=== PATIENT | male | born 1955 | race Caucasian/White ===

== ENCOUNTER 2020-09-02 00:34 | Outpatient (CLI) | payer MEDICARE, OTHER, SELFPAY ==
[2020-09-02 17:38] LABS: SARS-CoV-2 RNA PCR Negative
== END 2020-09-02 00:35 | disposition home or self-care (01) ==
LOC: ANHCOVIDDT 00:34
PROVIDERS: PCP Family Medicine; Visit Provider Specialist
DX: Z01.812 Encounter for preprocedural laboratory examination (principal); Z20.822 Contact with and (suspected) exposure to COVID-19
CPT/HCPCS: C9803; U0003; U0005

== ENCOUNTER 2020-09-05 01:34 | Day surgery (SDC) | payer MEDICARE, OTHER, SELFPAY ==
[2020-09-05] VITALS (8 sets, daily range): BP systolic 91–115; BP diastolic 60–80; PULSE 48–96; RESP 15–19; TEMP 36.6; O2SAT 92–98; BMI 34.2
--- NOTE | 2020-09-05 07:18 | ECG_ITS ---
Measurements Intervals [place] Rate: 87 P: NV: 0 QRS: -4 QRSD: 109 T: 23 QT: 393 QTc: 473 Interpretive Statements ATRIAL FIBRILLATION RSR' IN V1 OR V2, CONSIDER RIGHT VENTRICULAR HYPERTROPHY OR RIGHT VCD ABNORMAL ECG Electronically Signed On 09-05-2020 10:14:46 [employer] by Anival Trent D.O.
[2020-09-05 09:26] LABS: Anion Gap 3 mmol/L (8-16); Blood Urea Nitrogen 15 mg/dL (9-20); Calcium 8.9 mg/dL (8.4-10.2); Carbon Dioxide 32 mmol/L (22-30); Chloride 102 mmol/L (98-107); Estimated Glomerular Filt Rate > 60; Glucose 100 mg/dL (75-110); Magnesium 1.7 mg/dL (1.6-2.3); Potassium 3.7 mmol/L (3.4-5.0); Sodium 137 mmol/L (137-145)
--- NOTE | 2020-09-05 09:41 | WPDMODSED ---
Moderate Sedation Note-Pt Data Patient Data Diagnosis: Atrial fibrillation with symptomatic recurrence Present Complaint: Palpitations and fatigue Procedure to be performed/Plan: DC cardioversion Allergies Allergy/AdvReac Type Severity Reaction Status Date / Time hydrocodone Allergy Severe ITCHING Verified 09/05/20 09:27 Home Medications Medication Instructions Recorded Confirmed Type indapamide 2.5 mg tablet 2.5 mg PO DAILY 03/24/20 09/05/20 History rivaroxaban 20 mg tablet 20 mg PO DAILY 03/24/20 09/05/20 History sotalol 80 mg tablet 80 mg PO BID tablet 03/24/20 09/05/20 History Current Medications: Active Medications Sodium Chloride (Normal Saline Iv) 1,000 mls @ 30 mls/hr IV CONT .Q24H VAUGHN Sedation/Anesthesia: No previous sedation/anesthesia problems (including family history). [facility] Past Medical History Medical History Atrial fibrillation Bilateral knee pain Degenerative joint disease of knee Dermatitis Hyperlipidemia Hypertension Surgical History Surgical History History of total knee arthroplasty History of total right knee replacement Family History Family History Sibling Diabetes mellitus Acute myocardial infarction Mother Hypertension Family history of congestive heart failure Other Family history of arthritis Family history of heart disease in male family member before age 55 Family history of kidney stones Family history of lung disease Family history of malignant neoplasm Social History Social History Smoking status: Never smoker Second hand tobacco smoke exposure: No Alcohol intake: never Substance use: never Substance use type: does not use Gender identity (if verbalized by the patient): Male Spiritual care concerns: No Agree to blood products: Yes Mod Sed Physical Exam Physical Exam Pre Procedural Exam: Normal: Appearance, Nose, Neck, Throat, Airway, Lungs, Heart Size, Heart Rate, Neuro Exam and Extremities and Variation: Heart Rhythm (Irregularly irregular) Hours since solid foods: 12 Hours since liquid intake: 12 Internal Medicine - PN: Obj Da Meds/Results Medications: Active Medications Generic Name Dose Route Start Last Admin Trade Name Freq PRN Reason Stop Dose Admin Sodium Chloride 1,000 mls @ 30 mls/hr 09/05/20 07:20 Normal Saline Iv IV CONT .Q24H VAUGHN Labs CBC & Chem 7: 09/05/20 09:09 Labs: Laboratory Results - last 24 hr 09/05/20 09:09 Sodium 137 Potassium 3.7 Chloride 102 Carbon Dioxide 32 H Anion Gap 3 L BUN 15 Creatinine 0.90 Estim Creat Clear Calc Not Reportable Estimated GFR > 60 Glucose 100 Calcium 8.9 Magnesium 1.7 ASA Classification/Sedation ASA Classification/Sedation ASA Class: II Emergent: No Risks: Risks, benefits and alternatives explained and patient/family accepted plan for sedation. Patient re-evaluated immediately prior to sedation.
--- NOTE | 2020-09-05 09:57 | P.PCNCC_ITS ---
Cardiac Cath Procedure Note Date of procedure:: 09/05/20 Performing physician:: Maxwell Jackson MD Indication:: Recurrent atrial fibrillation Brief clinical history:: This is a 65-year-old man with atrial fibrillation having been cardioverted in 2016. He was seen in the office recently with what was felt to be a recent symptomatic recurrence of his arrhythmia. Patient is receiving both sotalol and Xarelto and is admitted as an outpatient for another attempt at restoring sinus rhythm electrically. Procedure Procedure performed:: DC cardioversion Sedation/Medication given:: Propofol intravenously total dose of 80 mg Case start time 9:50 a.m. Case end time 9:56 a.m. Estimated blood loss:: No blood loss Procedure note:: Patient was brought to the cardiac catheterization lab holding area. In the postabsorptive state. He was placed in the supine position with defibrillator patches in the AP position. He was then sedated using propofol in aliquots a total dosage of 80 mg was given which provided excellent sedation. He was DC cardioverted with 200 joules x1 shock in a synchronized fashion restoring normal sinus rhythm/sinus bradycardia. Findings:: As above Conclusion:: Successful DC cardioversion of recurrent atrial fibrillation restoring sinus rhythm using 200 joules x1 shock. Maxwell Jackson MD [facility]
--- NOTE | 2020-09-05 10:04 | ECG_ITS ---
Measurements Intervals [place] Rate: 49 P: 4 IA: 206 QRS: -5 QRSD: 111 T: 17 QT: 483 QTc: 439 Interpretive Statements SINUS BRADYCARDIA INCOMPLETE LEFT BUNDLE BRANCH BLOCK ABNORMAL ECG Electronically Signed On 09-05-2020 10:17:48 [employer]AK[employer]ER by Anival Trent D.O.
--- NOTE | 2020-09-05 11:46 | SUR.PHASEII ---
Discharge instructions given to patient including education on sedation and procedure information including follow-up appointment/care. PIV removed. VSS. A & O x 4 and denies pain at time of discharge. Patient taken to vehicle via wheelchair, where he was picked up by his . Patient states he has no further questions or concerns at time of discharge.
== END 2020-09-05 11:45 | disposition home or self-care (01) ==
PROVIDERS: PCP Family Medicine; Visit Provider Specialist
PROC: 5A2204Z Restoration of Cardiac Rhythm, Single (ICD-10-PCS; principal; 2020-09-05 10:00)
DX: I48.91 Unspecified atrial fibrillation (principal); I10 Essential (primary) hypertension; E78.5 Hyperlipidemia, unspecified; Z79.01 Long term (current) use of anticoagulants
CPT/HCPCS: 36415; 80048; 83735; 92960; 93005; J2704; J7040

== ENCOUNTER 2021-11-27 00:44 | Day surgery (SDC) | payer MEDICARE, OTHER, SELFPAY ==
[2021-11-24 16:55] VITALS: BMI 36.5
[2021-11-27] VITALS (9 sets, daily range): BP systolic 115–130; BP diastolic 74–88; PULSE 60–96; RESP 15–22; TEMP 36.6; O2SAT 94–100; BMI 41.8
--- NOTE | 2021-11-27 12:30 | ECG_ITS ---
Measurements Intervals [place] Rate: 72 P: 34 AL: 200 QRS: -9 QRSD: 114 T: 27 QT: 449 QTc: 492 Interpretive Statements SINUS RHYTHM LEFT ATRIAL ENLARGEMENT [-0.15mV P WAVE IN V1/V2] POSSIBLE RIGHT VENTRICULAR CONDUCTION DELAY [RSR (QR) IN V1/V2] COMPARED TO ECG 11/27/2021 13:32:05 SINUS RHYTHM NOW PRESENT Electronically Signed On 11-27-2021 15:04:28 CDT by Maxwell Jackson M.D.
--- NOTE | 2021-11-27 12:30 | ECG_ITS ---
Measurements Intervals [place] Rate: 100 P: DC: 0 QRS: -13 QRSD: 120 T: 17 QT: 394 QTc: 509 Interpretive Statements ATRIAL FIBRILLATION WITH RAPID VENTRICULAR RESPONSE MODERATE INTRAVENTRICULAR CONDUCTION DELAY [110+ ms QRS DURATION] ABNORMAL RHYTHM ECG COMPARED TO ECG 09/05/2020 10:08:04 ATRIAL FIBRILLATION NOW PRESENT INTRAVENTRICULAR CONDUCTION DELAY NOW PRESENT Electronically Signed On 11-27-2021 15:03:25 CDT by Maxwell Jackson M.D.
[2021-11-27 13:36] LABS: Anion Gap 7 mmol/L (8-16); Blood Urea Nitrogen 22 mg/dL (9-20); Calcium 8.5 mg/dL (8.4-10.2); Carbon Dioxide 30 mmol/L (22-30); Chloride 101 mmol/L (98-107); Estimated CRCL calculation 104 ml/min; Estimated Glomerular Filt Rate > 60; Glucose 101 mg/dL (65-110); Magnesium 1.8 mg/dL (1.6-2.3); Potassium 3.1 mmol/L (3.4-5.0); Sodium 138 mmol/L (137-145)
--- NOTE | 2021-11-27 13:59 | WPDANESEPPF ---
Anes - Initial Pre Proc Eval Procedure: Operation Date: 11/27/21 14:00 Proposed Procedures p Electrical Cardioversion - Maxwell Jackson MD Date/Time: 11/27/21 13:59 Surgeon: Maxwell Jackson MD Pre Op Diagnosis: a-fib Patient Data Age: 66 Gender: M Height: 1.93 m Weight: 155.7 kg Last Vital Signs Temp 36.6 C 11/27/21 13:34 Pulse 96 11/27/21 13:34 Resp 18 11/27/21 13:34 BP 130/83 11/27/21 13:34 Pulse Ox 100 11/27/21 13:34 Allergies Allergy/AdvReac Type Severity Reaction Status Date / Time hydrocodone Allergy Severe ITCHING Verified 09/05/20 09:27 Home Medications Medication Instructions Recorded Confirmed Type indapamide 2.5 mg tablet 2.5 mg PO DAILY 03/24/20 09/05/20 History rivaroxaban 20 mg tablet 20 mg PO DAILY 03/24/20 09/05/20 History sotalol 80 mg tablet 80 mg PO BID tablet 03/24/20 09/05/20 History Laboratory Tests 11/27/21 13:11 Sodium 138 mmol/L mmol/L (137-145) Potassium 3.1 mmol/L L mmol/L (3.4-5.0) Chloride 101 mmol/L mmol/L (98-107) Carbon Dioxide 30 mmol/L mmol/L (22-30) Anion Gap 7 mmol/L L mmol/L (8-16) BUN 22 mg/dL H mg/dL (9-20) Creatinine 0.90 mg/dL mg/dL (0.7-1.3) Estim Creat Clear Calc 104 ml/min ml/min Estimated GFR > 60 (59 - ) Glucose 101 mg/dL mg/dL (65-110) Calcium 8.5 mg/dL mg/dL (8.4-10.2) Magnesium 1.8 mg/dL mg/dL (1.6-2.3) Patient hx anesthesia problems: none Family hx anesthesia problems: none Results Review: All pre-operative results and documents have been reviewed as part of the pre-operative evaluation. [facility] Past Medical History Medical History Atrial fibrillation Bilateral knee pain Degenerative joint disease of knee Dermatitis Hyperlipidemia Hypertension Surgical History Surgical History History of total knee arthroplasty History of total right knee replacement Family History Family History Sibling Diabetes mellitus Acute myocardial infarction Mother Hypertension Family history of congestive heart failure Other Family history of arthritis Family history of heart disease in male family member before age 55 Family history of kidney stones Family history of lung disease Family history of malignant neoplasm Social History Social History Smoking status: Never smoker Second hand tobacco smoke exposure: No Alcohol intake: never Substance use: never Substance use type: does not use Gender identity (if verbalized by the patient): Male Sexual Orientation (if Verbalized by the Patient): Straight or Heterosexual Spiritual care concerns: No Agree to blood products: Yes Anes - Eval Final PreProcedure Day of Procedure 11/27/21 13:59 Patient weight: morbidly obese Heart: regular rate and rhythm Lungs: clear to auscultation and normal air movement Airway: Mallampati scale class II Neurological: alert and oriented Last oral intake: >/= 8 hours ASA classification: III Emergent: no Anesthetic plan: proceed Anesthesia type and monitoring: general GIVS and standard monitoring Results Review: All pre-operative results and documents have been reviewed as part of the pre-operative evaluation. Informed Consent: The patient's anesthetic plan and its attendant risks and benefits were discussed with the patient/family/POA. Questions were solicited and answers provided to the satisfaction of the patient/family/POA.
--- NOTE | 2021-11-27 14:08 | WPDCARDPROC ---
Cardiac Cath Procedure Note Date of procedure:: 11/27/21 Performing physician:: Maxwell Jackson MD Indication:: Recurrent atrial fibrillation Brief clinical history:: This is a 58 year with a long history of paroxysmal atrial fibrillation. He has been cardioverted several times previously. He is currently taking sotalol to maintain sinus rhythm. About 1 week ago he noticed the onset of symptomatic palpitations and came into the office for an ECG at the end of last week was found to be back in atrial fibrillation an attempt at restoring sinus rhythm again electrically has been recommended. His last cardioversion was approximately a year ago. Procedure Procedure performed:: DC cardioversion Sedation/Medication given:: Sedation per the Anesthesia Service Estimated blood loss:: No blood loss Procedure note:: The patient was brought to the GI lab in the postabsorptive state with defibrillator patches in the AP position. He was then sedated by the anesthesia service. Please see their note for sedation details. Once he was adequately sedated he was cardioverted with 200 joules in a synchronized fashion with defibrillator restoring normal sinus rhythm. Findings:: As above Conclusion:: Successful uncomplicated DC cardioversion of atrial fib restoring sinus rhythm with 200 joules x1 shock Maxwell Jackson MD [facility]
--- NOTE | 2021-12-19 12:30 | PM.IMHP ---
H&P: HPI History of Present Illness Date/Time: 11/27/21 12:30 Chief Complaint: Recurrent atrial fibrillation Narrative: This is a 66-year-old patient with a history of paroxysmal atrial fibrillation which has been followed in the outpatient setting for a number of years. He was seen in the office recently because he recognized symptoms of recurrent palpitations and was found to be back in atrial fibrillation. An attempt at restoring sinus rhythm was there for recommended electrically and for that reason he was admitted to the hospital as an outpatient today. Because of morbid obesity the procedure is being done in conjunction with anesthesia. He has no other cardiovascular history and no other structural heart problems based on previous evaluation. He is taking amiodarone for antiarrhythmic therapy and Xarelto for systemic anticoagulation. Review of Systems Constitutional: Constitutional: Reports lethargy Eyes: Eyes: Reports no additional eye complaints ENT: Reports system reviewed and no additional complaints, except as documented Cardiovascular: Cardiovascular: Reports palpitations Respiratory: Respiratory: Reports no additional respiratory complaints Gastrointestinal: Gastrointestinal: Reports no additional gastrointestinal complaints Musculoskeletal: Musculoskeletal: Reports no additional musculoskeletal complaints Integumentary/Breasts: Skin/Breast: Reports system reviewed and no additional complaints, except as docu Neurologic: Reports system reviewed and no additional complaints, except as documented [facility] Past Medical History Medical History Atrial fibrillation Bilateral knee pain Degenerative joint disease of knee Dermatitis Hyperlipidemia Hypertension Surgical History Surgical History History of total knee arthroplasty History of total right knee replacement Family History Family History Sibling Diabetes mellitus Acute myocardial infarction Mother Hypertension Family history of congestive heart failure Other Family history of arthritis Family history of heart disease in male family member before age 55 Family history of kidney stones Family history of lung disease Family history of malignant neoplasm Social History Social History Smoking status: Never smoker Second hand tobacco smoke exposure: No Alcohol intake: never Substance use: never Substance use type: does not use Gender identity (if verbalized by the patient): Male Sexual Orientation (if Verbalized by the Patient): Straight or Heterosexual Spiritual care concerns: No Agree to blood products: Yes Meds Home Medications and Allergies Home Medications Medication Instructions Recorded Confirmed Type indapamide 2.5 mg tablet 2.5 mg PO DAILY 03/24/20 09/05/20 History rivaroxaban 20 mg tablet 20 mg PO DAILY 03/24/20 09/05/20 History amiodarone 400 mg PO DAILY #30 tablet 11/27/21 Rx Allergies Allergy/AdvReac Type Severity Reaction Status Date / Time hydrocodone Allergy Severe ITCHING Verified 11/27/21 14:09 Exam Const: General: comfortable and no acute distress Other: Obese white male appearing his stated age no distress of any kind HENMT: Mouth: Yes moist mucous membranes Eyes: Sclera: sclerae normal Pupils: Equal, round and reactive pupils present Neck: Neck: supple Other: Difficult to assess JVD given his body habitus no carotid bruits Resp: Effort & Inspection: normal respiratory effort Auscultation: clear to auscultation bilaterally Cardio: Rhythm: abnormal rhythm irregularly irregular GI: GI Palp: Yes Soft to palpation Auscultation: normal bowel sounds Skin: General skin exam: normal color Neuro: Cognition (Neuro): normal cognition Extrem: General: normal to inspection Ass
== END 2021-11-27 15:17 | disposition home or self-care (01) ==
PROVIDERS: PCP Family Medicine; Visit Provider Specialist
PROC: 5A2204Z Restoration of Cardiac Rhythm, Single (ICD-10-PCS; principal; 2021-11-27 14:00)
DX: I48.0 Paroxysmal atrial fibrillation (principal); I10 Essential (primary) hypertension; E78.5 Hyperlipidemia, unspecified; E66.01 Morbid (severe) obesity due to excess calories; Z68.41 Body mass index [BMI] 40.0-44.9, adult; Z79.01 Long term (current) use of anticoagulants
CPT/HCPCS: 36415; 80048; 83735; 92960

== ENCOUNTER 2021-12-27 14:36 | Outpatient (CLI) | payer MEDICARE, OTHER, SELFPAY ==
--- NOTE | 2021-12-28 10:04 | WPDPFTINT ---
PFT Procedure Performed PFT Procedure Performed Plethysmography (Lung Vol) Diffusing Cap (DLCO) Flow Vol Loop Spirometry w/o Bronchodil PFT Interpretation Lung volumes were measured with the body plethysmography method. Lung volumes are unremarkable. Spirometry showed normal expiratory flow rates and a normal FEV1 to FVC ratio of 83%. No post bronchodilator study was carried out. Lung diffusion capacity is within the normal range at 114% predicted. The flow volume loop is unremarkable. Impression: Spirometry, lung volumes, and lung diffusion capacity all within the normal range.
== END 2021-12-27 14:37 | disposition home or self-care (01) ==
LOC: ANHPFT 14:37
PROVIDERS: PCP Family Medicine; Visit Provider Nurse Practitioner Adult Health
DX: Z51.81 Encounter for therapeutic drug level monitoring (principal); Z79.899 Other long term (current) drug therapy
CPT/HCPCS: 94060; 94726; 94729

== ENCOUNTER 2025-07-17 19:47 | Outpatient (CLI) | payer MEDICARE, OTHER, SELFPAY ==
--- OUTSIDE RECORDS SUMMARY | 2025-07-17 19:52 | XMS_ITS | Clinical Summary ---
Author Organization [facility] [employer] Address [address] [place] [address] Care Team Providers Care Daily Release And Dupe Printer Name Role Phone Andrea Magallanes MD Primary Care Provider [phone] Source Comments [facility] [employer],non-owned Affiliates and Associated Physician Practices is amultiple site organization consisting of ambulatory clinics and hospital sitesin [place], [place], [place] and [place]. This disclosure is being madepursuant to the Care Everywhere program and may not contain all information available regarding this patient. Last updated [employer] Allergies No known active allergies Medications * Be aware that medications may not be up to date on this document. Alwaysverify current medications with the patient. dabigatran (PRADAXA) 150 MG capsule Take 150 mg by mouth 2 times daily Active sotalol, AF, 80 MG tablet Take 80 mg by mouth 2 times daily Active indapamide (LOZOL) 2.5 MG tablet Take 2.5 mg by mouth once daily Active Family History Medical History Relation Name Comments Cancer - Lung Father Other - Cardiac Mother CHF Relation Name Status Comments Father Mother Social History Tobacco Use Types Packs/Day Years Used Date Smoking Tobacco: Never Smokeless Tobacco: Never Sex and Gender Information Value Date Recorded Sex Assigned at Not on file Legal Sex Male 4:32 PM CDT Gender Identity Not on file Sexual Orientation Not on file Last Filed Vital Signs Vital Sign Reading Time Taken Comments Blood Pressure 114/72 02/25/2018 5:49 PM CDT Pulse 58 02/25/2018 5:49 PM CDT Temperature 36.9 C (98.5 F) 02/25/2018 5:49 PM CDT Respiratory Rate 16 02/25/2018 5:49 PM CDT Oxygen Saturation 97% 02/25/2018 5:49 PM CDT Inhaled Oxygen Concentration - - Weight 127 kg (280 lb) 02/25/2018 5:49 PM CDT Height 193 cm (6' 4) 02/25/2018 5:49 PM CDT Body Mass Index 34.08 02/25/2018 5:49 PM CDT Plan of Treatment Health Maintenance Due Date Last Done Comments COLOGUARD (AGES 45-75) - COL ON CA SCREENING 1953 COLON MONITORING 1953 COLONOSCOPY - COLON CA SCREENING 1953 CT COLONOGRAPHY - COLON CA SCREENING 1953 Colorectal Cancer Screening 1953 FIT - COLON CA SCREENING 1953 FLEX SIG - COLON CA SCREENING 1953 LIPID TESTING 1953 HEPATITIS C SCREENING 01/18/1971 DTAP/TDAP/TD VACCINES (1 - Tdap) 01/23/1972 PNEUMOCOCCAL VACCINE 50+ (1 of 1 - PCV) 2003 ZOSTER VACCINE (1 of 2) 2003 SCREENING FOR DIABETES 02/25/2018 DEPRESSION SCREENING 08/12/2024 COVID-19 VACCINE (1 - 2024-2 6 season) 2025 INFLUENZA VACCINE (#1) 2025 Respiratory Syncytial Virus (RSV) Vaccine Pt: or over 60 yrs (1 - 1-dose 75+ series) 01/23/2028 HEPATITIS B VACCINE Aged Out No longe r eligible based on patient's age to complete this topic HIB VACCINE Aged Out No longer eligi ble based on patient's age to complete this topic HPV VACCINE Aged Out No longer eligi ble based on patient's age to complete this topic MENINGOCOCCAL (Group B) VACC INE SHARED DECISION-MAKING Aged Out No longer eligibl e based on patient's age to complete this topic MENINGOCOCCAL GROUPS A/C/Y/W VACCINE Aged Out No longer eligible b ased on patient's age to complete this topic Insurance [facility] Care Teams Daily Release And Dupe Printer Relationship Specialty Start Date End Date Andrea Magallanes MD [address] [place] [address] PCP - General Family Medicine 02/25/18
--- OUTSIDE RECORDS SUMMARY | 2025-07-17 19:52 | XMS_ITS | Clinical Summary ---
Author Organization [facility] [place] [address] [place] [address] [address] [place] [address] Care Team Providers Care Soakers Supervisor Name Role Phone Serena Quiroz MD Primary Care Provider [phone] Allergies No known active allergies Medications omega-3 fatty acids-fish oil 300-1,000 mg capsule Take 1 capsule (1 g total) by mouth daily Active aspirin 81 mg chewable tabletIndicatio ns:coronary artery disease Take 1 tablet (81 mg total) by mouth daily 30 tablet 11 11/09/2023 Active amiodarone (PACERONE) 200 mg tablet TAKE 1 TABLET BY MOUTH EVERY DAY 90 tablet 3 07/20/2024 Active indapamide (LOZOL) 2.5 mg tablet TAKE 1 TABLET BY MOUTH EVERY DAY IN THE MORNING 90 tablet 3 07/20/2024 Active Active Problems Problem Noted Date Diagnosed Date Melena 03/17/2024 Presence of Amulet left atrial appendage closure device 11/07/2023 Paroxysmal atrial fibrillation 03/07/2017 Encounters Date Type Department Care Team Description 07/05/2025 10:00 AM EXPERIENTIAL THERAPIST Office Visit [facility] Cardiology [address] [place] [address] Maxwell Jackson MD Paroxysmal atrial fibrillation (HCC) (Primary Dx); Presence of Amulet left atrial appendage closure device from Last 3 Months Surgical History Surgery Date Site/Laterality Comments HERNIA REPAIR 08/12/2011 - 08/11/2012 JOINT REPLACEMENT 08/12/2016 - 08/11/2017 Bilateral knees CHOLECYSTECTOMY 08/12/1997 - 08/11/1998 CARDIOVERSION x4 COLONOSCOPY 04/08/2024 Medical History Medical History Date Comments Hypertension Hypertension Sleep apnea Atrial fibrillation (HCC) Family History Medical History Relation Name Comments Heart attack Brother 3 Myocardial Infa rction; Cause of : Myocardial Infarction Coronary artery disease Brother 4 Brad nary Artery Disease; Cancer Father Heart disease Mother Arrhythmia Sister 2 Arrhythmias; Relation Name Status Comments Brother 1 (Age 72) Brother 2 Alive Brother 3 Brother 4 Father Mother Sister 1 Alive Sister 2 Social History Tobacco Use Types Packs/Day Years Used Date Smoking Tobacco: Never Smokeless Tobacco: Never Tobacco Cessation:Counseling Given: Not Answered Alcohol Use Standard Drinks/Week Comments No 0 (1 standard drink = 0.6 oz pur e alcohol) AUDIT-C Answer Date Recorded Q1: How often do you have a drink containing alcohol? Never 10/29/2023 Q2: How many drinks containi ng alcohol do you have on a typical day when you are drinking? Patient does not drink Q3: How often do you have si x or more drinks on one occasion? Never 10/29/2023 Personal Safety Answer Date Recorded Have you ever been in or are you currently in a harmful physical or emotional relationship or is someone making you feel afraid or unsafe? Denies 06/29/2024 Sex and Gender Information Value Date Recorded Sex Assigned at Not on file Legal Sex Male 3:52 PM EXPERIENTIAL THERAPIST Gender Identity Not on file Sexual Orientation Not on file Last Filed Vital Signs Vital Sign Reading Time Taken Comments Blood Pressure 122/72 07/05/2025 9:56 AM EXPERIENTIAL THERAPIST Pulse 58 07/05/2025 9:56 AM EXPERIENTIAL THERAPIST Temperature 36.7 C (98 F) 06/29/2024 9:36 AM EXPERIENTIAL THERAPIST Respiratory Rate 17 06/29/2024 9:36 AM EXPERIENTIAL THERAPIST Oxygen Saturation 98% 07/05/2025 9:56 AM EXPERIENTIAL THERAPIST Inhaled Oxygen Concentration - - Weight 146.1 kg (322 lb) 07/05/2025 9:56 AM EXPERIENTIAL THERAPIST Height 193 cm (6' 4) 07/05/2025 9:56 AM EXPERIENTIAL THERAPIST Body Mass Index 39.2 07/05/2025 9:56 AM EXPERIENTIAL THERAPIST Plan of Treatment Health Maintenance Due Date Last Done Comments Depression Screening 1955 Hepatitis C Screening 1955 Hepatitis B Screening 1971 Zoster Vaccine (1 of 2) 2003 Well Visit 65+ 2018 Pneumococcal vaccine 65+ (2 of 2 - PCV20 or PCV21) 05/12/2021 05/12/2020 Influenza Vaccine (#1) 2025 , 05/11/2018, 05/18/2017, Additional history exists Fall Risk Assessment 06/29/2025 06/29/2024 DTaP/Tdap/Td Vaccine (3 - Td or Tdap) 09/09/2028 09/09/2018, 04/29/2009, 08/12/1998 Colon Cancer Screening-Colonoscopy 04/08/2034 04/08/2024 Colon Cancer Screening-CT Colonography Discontinued 04/08/2024 Colon Cancer Screening-DNA Stool Discontinued 04/08/20 Colon Cancer Screening-FIT Discontinued 04/08/2024 Colon Cancer Screening-Sigmoidoscopy Discontinued 04/08/2024 Medical Devices Implanted Type Area Beer Runner Device Identifier Shelf Expiration Date Model / Serial / Lot [employer] Vascade Mvp 6-12fr Venous Closure [id number] - [id number] Implanted:Qty: 1 on 11/07/2023 by Sherwin Brandt MD at [facility] Collagen Left: Femoral Vein [employer] 06/12/2025 [id number] -[id number] / / [id number] [employer] Vascade Mvp 6-12fr Venous Closure [id number] - [id number] Implanted:Qty: 1 on 11/07/2023 by Bashir Lee MD at [facility] Collagen Right: Femoral Vein [employer] 06/12/2025 [id number] -[id number] / / [id number] [employer] Percutaneous Transcatheter Amplatzer Amulet 20mm [id number] - [id number] Implanted:Qty: 1 on 11/07/2023 by Bashir Lee MD at [facility] Left Atrial Appendage Occluder Left: Atrial Appendage [employer] 11/10/2027 [id number] / / [id number] Procedures Procedure Name Priority Date/Time Associated Diagnosis Comments ECG 12-LEAD Routine 07/05/2025 9:58 AM EXPERIENTIAL THERAPIST Paroxysmal atrial fibrillation (HCC) COLONOSCOPY 04/08/2024 8:56 AM CDT from Last 3 Months or Most Recently Relevant to Health Maintenance Results * ECG 12 lead (07/05/2025 9:58 AM EXPERIENTIAL THERAPIST) us Maxwell Jackson MD ECG ORDERABLES Final Re sult * Colonoscopy (04/08/2024 8:56 AM CDT) Anatomical Region Laterality Modality Other Narrative Procedure Note Erasmo Reyes MD - 04/08/2024 8:56 AM CDT [facility] Patient Name: Mark Jackson Procedure Date: 04/08/2024 8:56 AM Date of : 1955 Admit Type: Outpatient Age: 69 Gender: Male Attending MD: Erasmo Reyes M.D. Room: [facility] ENDOSCOPY ROOM 1 Note Status: Finalized Patient Profile: This is a 69 year old male. No family history ofcolon cancer. Last colonoscopy 10 years ago. Noted recent episode 1 month ago with hematochezia lasted about2 days then spontaneously resolved. Patient taking Plavix and baby aspirin Procedure: Colonoscopy Indications: Screening for colorectal malignant neoplasm, Last colonoscopy 10 years ago Referring MD: Serena Quiroz M.D. Providers: Erasmo Reyes M.D. Impression: - Diverticulosis in the entire examined colon. - One 5 mm polyp in the proximal descending colon, removed with a jumbo cold forceps. Resected and retrieved. - Internal hemorrhoids. Recommendation: - Await pathology results. - Repeat colonoscopy in 5 years for surveillance. - Continue present medications. - I suspect the recent episode of hematochezia secondary to diverticulosis. Discussed finding with the patient and to proceed to ER if future episodes lasted more than 24 hours. Medicines: Monitored Anesthesia Care Complications: No immediate complications. Estimated Blood Loss: Estimated blood loss: none. Procedure: Pre-Anesthesia Assessment: - Prior to the procedure, a History and Physicalwas performed, and patient medications and allergieswere reviewed. The patient's tolerance of previous anesthesia was also reviewed. The risks andbenefits of the procedure and the sedation options and risks were discussed with the patient. All questions were answered, and informed consent was obtained. Prior Anticoagulants: The patient has taken noanticoagulant or antiplatelet agents. ASA Grade Assessment: Per anesthesia note and evaluation. After reviewing the risks and benefits, the patient was deemed in satisfactory condition to undergo the procedure. The benefits, risks and alternatives of theprocedure and sedation were discussed and informed consentwas obtained. All questions were answered. Please referto the signed informed consent document in the medical record. The bowel preparation used was Miralax and bisacodyl tablets via split dose instruction. The scope was passed under direct vision. The Pediatric Colonoscope PCF-H190L [id number] was introducedthrough the anus and advanced to the the cecum, identifiedby appendiceal orifice and ileocecal valve. Thequality of the bowel preparation was good. Bowel prep was administered using a split dose. Findings: The perianal and digital rectal examinations were normal. The cecum appeared normal. No blood noted in the colon. Ileocecalvalve is normal Multiple small and large-mouthed diverticula were found in the entire colon although more prominent diverticular changes noted in thesigmoid colon.. A 5 mm polyp was found in the proximal descending colon. The polypwas semi-sessile. The polyp was removed with a jumbo cold forceps.Resection and retrieval were complete. Internal hemorrhoids were found during retroflexion. The hemorrhoids were small. Electronically signed by Erasmo Reyes M.D. Erasmo Reyes M.D. 04/08/2024 10:13:09 AM Number of Addenda: 0 Note Initiated On: 04/08/2024 8:56 AM Procedure Code(s): --- Professional --- 84358, Colonoscopy, flexible; with biopsy, single or multiple Diagnosis Code(s): --- Professional --- Z12.11, Encounter for screening for malignant neoplasm of colon K64.8, Other hemorrhoids D12.4, Benign neoplasm of descending colon K57.30, Diverticulosis of large intestine without perforation orabscess without bleeding CPT copyright 2020 [employer]. All rights reserved. The codes documented in this report are preliminary and upon grain unloader machine reviewmay be revised to meet current compliance requirements. Recognized by the [employer] for promoting quality in endoscopy Erasmo Reyes MD ENDOSCOPY PROCEDURES Final Result from Last 3 Months or Most Recently Relevant to Health Maintenance Insurance MEDICARE [place]IC[place] MEDICARE [facility] Advance Directives For more information, please contact: [phone] * Full Code (Latest Code Status on File) Date Activated Date Inactivated Comments 04/08/2024 8:57 AM 04/08/2024 2:59 PM * Full Code Date Activated Date Inactivated Comments 04/08/2024 8:57 AM 04/08/2024 8:57 AM Care Teams Soakers Supervisor Relationship Specialty Start Date End Date Serena Quiroz MD PCP - General Family Medicine 04/11/21
[2025-08-10 11:41] VITALS: BMI 38.9
--- NOTE | 2025-08-10 11:41 | WPDSLEEPSTUD ---
Sleep Study Date of Study: 07/17/25 Ordering Provider: Fabricio Shah APRN Interpreting Physician: Juany Price MD Sleep Study Type: Split Polysomnogram Height: 1.93 m Weight: 145.15 kg Body Mass Index: 38.9 Neck Circumference (inches): 15 Vancourt: 6 Sleep History Mark Jackson is a 70-year-old man with known severe BRIGHT, prior testing showed and AHI of 86.3 when his BMI was 42.6, now BMI is 39. . He [ ] awakens from sleep feeling short of breath. He [ ] wakes at night with heartburn, belching or coughing.??He [ ] snores, [ ] snores loudly enough that others complain. He [ ] has trouble sleeping when he has a cold. He [ ] wakes up gasping for breath during the night. He [ ] has breathing problems at night. He[ ] sweats excessively at night. He [ ] notices his heart pounding or beating irregularly during the night. He [ ] falls asleep during the day. He [ ] falls asleep involuntarily, [ ] falls asleep while driving. He[ ] experiences loss of muscle tone with strong emotion. He [] has daytime difficulty at work due to excessive sleepiness. He[ ] feels paralyzed on waking or falling asleep. He[ ] experiences vivid dreams upon waking or falling asleep. He[ ] feels afraid of going to sleep. He[ ] has nightmares. He[ ] recalls his dreams. He[ ] has thoughts racing through his mind. He[ ] feels sad or depressed. He[ ] feels anxiety. He[ ] notices parts of his body jerk. He[ ] kicks during the night. He[ ] feels crawling or aching feelings in his legs. He[ ] feels leg pain at night. He[ ] has morning jaw pain, [] grinds his teeth at night. He[ ] feels bothered by pain during the day, [ ] awakened by pain during the night. He[ ] wakes up feeling stiff in the morning, and he [] wakes feeling sore or achy. He [] awakens with pain in his neck, spine, or joints. Normal bedtime is[], falling asleep[ ], waking [] times at night. Wake time is []. He typically gets [ ] hours of sleep per night. His wake up time is [ ]. He takes [] naps in the day, [] feel refreshed afterwards. Habits:??Tobacco:[ ] Caffeine:[ ]. Alcohol:[ ] Recreational substances: none PMFSH Past Medical History Medical History (Updated 08/10/25 @ 11:44 by Juany Price MD) Obstructive sleep apnea Dermatitis Hyperlipidemia Hypertension Atrial fibrillation Degenerative joint disease of knee Bilateral knee pain Surgical History Surgical History History of left atrial appendage closure History of total knee arthroplasty History of total right knee replacement Family History Family History Sibling Diabetes mellitus Acute myocardial infarction Mother Hypertension Family history of congestive heart failure Other Family history of arthritis Family history of heart disease in male family member before age 55 Family history of kidney stones Family history of lung disease Family history of malignant neoplasm Social History Social History Smoking status: Never smoker Second hand tobacco smoke exposure: No Alcohol intake: never Substance use: never Substance use type: does not use Living arrangements: with family Occupation/Education: retired Gender identity (if verbalized by the patient): Male Sexual Orientation (if Verbalized by the Patient): Straight or Heterosexual Spiritual care concerns: No Agree to blood products: Yes Medications Home Medications ?Medication ?Instructions ?Recorded ?Confirmed ?Type indapamide 2.5 mg tablet 2.5 mg PO DAILY 03/24/20 06/10/25 History amiodarone 400 mg tablet 200 mg (1/2 x 400 mg) PO DAILY #30 03/03/22 06/10/25 Rx tabs aspirin 81 mg tablet,delayed 81 mg PO DAILY 03/12/24 06/10/25 History release betamethasone dipropionate 0.05 % 1 applic topical DAILY PRN itching 03/08/25 06/10/25 Rx topical cream #15 grams eszopiclone 2 mg tablet 2 mg PO ONCE #1 tablet 06/10/25 06/10/25 Rx Sleep Procedure A split night polysomnogram using the [employer] multi-channel system recorded the standard physiologic parameters including EEG, EOG, submentalis EMG, anterior tibialis EMG, EKG, body position, nasal and oral airflow using nasal pressure sensor and thermistor. Respiratory parameters of chest and abdominal movements were recorded with Respiratory Inductance Plethysmography belts. Oxygen saturation was recorded by pulse oximetry. Video monitoring was also performed. Sleep stages, periodic limb movements, and EEG arousals were scored in 30 second epochs according to the criteria of the AASM Scoring Manual. The Apnea-Hypopnea Index was calculated using [facility] guidelines for definition of hypopnea while scoring respiratory events. Patient self-administered eszopiclone 2 mg at the start of the test. After the baseline portion the patient met criteria for a titration with an AHI of 66.2 and desaturation to 80%. he used a medium [employer] Solo nasal mask with and heated humidity, titration started at 5 cm, titrated through Sleep Architecture During the diagnostic portion of the study, the total recording time was 252.4 minutes. The total sleep time was 130.5 minutes. Sleep latency was 4.0 minutes. There was no REM on the baseline. Sleep Efficiency was 51.7%. The patient had 21 awakenings for an awakening index of 9.7. Wake after sleep onset time was 118.0 minutes. The patient spent 32.5 minutes, 24.9% of total sleep time in Stage N1. The patient spent 98.0 minutes, 75.1% in Stage N2. The patient spent no time in stage N3 or Stage REM sleep. At 02:02:19 AM the patient was placed on PAP treatment. During the treatment portion of the study, the total recording time was 235.0 minutes. The total sleep time was 164.0 minutes. Sleep latency was 7.0 minutes. REM latency was 35.5 minutes. Sleep Efficiency was 69.8%. Wake after Sleep Onset time was 63.5 minutes. The patient spent 33.5 minutes, 20.4% of total sleep time in Stage N1. The patient spent 109.5 minutes, 66.8% in Stage N2. The patient spent no time in Stage N3. The patient spent 21.0 minutes, 12.8% in Stage REM. Respiratory Analysis During the diagnostic portion of the study, the patient had 100 hypopneas, 13 obstructive apneas, 6 mixed apneas, and 25 central apneas for an overall Apnea Hypopnea Index of 66.2 events per hour. The REM Apnea Hypopnea Index was 0 as he had no REM on baseline. The NREM Apnea Hypopnea Index was 66.2. The patient had a Central Apnea Hypopnea Index of 11.5. There were no Respiratory Effort Related Arousals.The Respiratory Disturbance Index is 75.9 events per hour. There was no evidence of Torey-Gill Respirations. During the treatment portion of the study, the patient had 60 hypopneas, no obstructive apneas, no mixed apneas, and 33 central apneas for an overall Apnea Hypopnea Index of 34.0 events per hour. The REM Apnea Hypopnea Index was 0. The NREM Apnea Hypopnea Index was 39.0. The patient had a Central Apnea Hypopnea Index of 12.1. There were no Respiratory Effort Related Arousals. The Respiratory Disturbance Index is 44.3 events per hour. There was no evidence of Torey-Gill Respirations. Arousals During the diagnostic portion of the study, there were a total of 185 arousals for an arousal index of 85.1. There were 130 respiratory arousals for an index of 59.8. There were 9 periodic limb movement arousals for an index of 4.1. There were 7 isolated limb movement arousals for an index of 3.2. There were 39 spontaneous arousals for an index of 17.9. During the treatment portion of the study, there were a total of 159 arousals for an index of 58.2. There were 43 respiratory arousals for an index of 15.7. There were 38 periodic limb movement arousals for an index of 13.9. There were 24 isolated limb movement arousals for an index of 8.8. There were 56 spontaneous arousals for an index of 20.5. Periodic Limb Movements During the diagnostic portion of the study, the patient had 11 isolated limb movements with an index of 5.1. The patient had 19 periodic limb movements with an index of 8.7. The patient had a total of 30 limb movements with a total limb movement index of 13.8. During the treatment portion of the study, the patient had 37 isolated limb movements with an index of 13.5. The patient had 93 periodic limb movements with an index of 34.0. The patient had a total of 130 limb movements with a total limb movement index of 47.6. Oximetry Data During the diagnostic portion of the study, the patient had an average oxygen saturation of 92% in wake with a minimum oxygen saturation of 83% and a maximum oxygen saturation of 97%. The patient had an average oxygen saturation of 90.8% in sleep with a minimum oxygen saturation of 80% and a maximum oxygen saturation of 97%. The patient had 167 oxygen desaturations resulting in an Oxygen Desaturation Index of 76.8. The patient spent 30.8 minutes, 12.6% of total sleep time with an oxygen saturation less than 88%. During the treatment portion of the study, the patient had an average oxygen saturation of 93.5% in wake with a minimum oxygen saturation of 86% and a maximum oxygen saturation of 98%. The patient had an average oxygen saturation of 92% in sleep with a minimum oxygen saturation of 85% and a maximum oxygen saturation of 96%. The patient had 140 oxygen desaturations resulting in an Oxygen Desaturation Index of 51.2. The patient spent 5 minutes, 2.1% of total sleep time with an oxygen saturation less than 88%. Snoring Profile During the diagnostic portion, snoring was moderate, eliminated during the titration. Cardiac Profile During the diagnostic portion of the study, the EKG showed normal sinus rhythm. The average pulse rate was not reported. During the treatment portion of the study, the EKG showed normal sinus rhythm. The average pulse rate was not reported. EEG Profile Unremarkable, no evidence of seizures. Assessment and Plan Assessment and Plan (1) Obstructive sleep apnea: Code(s): G47.33 - Obstructive sleep apnea (adult) (pediatric) Status: Acute Assessment and Plan: This split night study on 07/17/2025 shows severe obstructive sleep apnea, the AHI is 66.2 with desaturation to 80%, worse in supine position, supine AHI 80, 30.6 minutes spent below 88% without REM on the baseline. Data The data obtained during this sleep study is adequate for interpretation. Certification This sleep study has been reviewed by a board certified sleep medicine physician.
== END 2025-07-18 07:09 | disposition home or self-care (01) ==
PROVIDERS: Visit Provider Nurse Practitioner Family
DX: G47.00 Insomnia, unspecified (principal); G47.33 Obstructive sleep apnea (adult) (pediatric)
CPT/HCPCS: 95811